=== PATIENT | male | born 1965 | race Caucasian/White ===

== ENCOUNTER 2016-09-18 17:48 | Emergency (ER) | payer BC, OTHER ==
[2016-09-18 18:36] LABS: Hematocrit 46 % (42-52); Hemoglobin 15.5 g/dl (14.0-18.0); Mean Corpuscular HGB Conc 34 g/dl (31-36); Mean Corpuscular Hemoglobin 30 pg (27-31); Mean Corpuscular Volume 89 fL (80-94); Mean Platelet Volume 8 um3 (7.4-10.4); Red Blood Count 5.19 10^6/ul (4.0-5.4); Red Cell Distribution Width 14 % (10.5-15); White Blood Count 9.1 10^3/ul (3.5-10.8)
[2016-09-18] MEDS ORDERED: Acetaminophen TAB* 325 MG PO ONE (18:38)
[2016-09-18 18:53] LABS: Albumin 4.4 g/dL (3.2-5.2); BUN/Creatinine Ratio 19.8 (8-20); Calcium 9.3 mg/dL (8.6-10.3); EGFR African American 85.4 (>60); EGFR Non-African American 66.4 (>60); Globulin 3.1 g/dL (2-4); Potassium 3.5 mmol/L (3.5-5.0); Total Bilirubin 0.5 mg/dL (0.2-1.0); Total Protein 7.5 g/dL (6.4-8.9)
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
[2016-09-18 19:09] LABS: Troponin I 0.01 ng/mL (<0.04)
[2016-09-18 19:16] VITALS: BP 147/83
== END 2016-09-18 19:00 | disposition short-term general hospital (02) ==
LOC: ED 17:48
DX: S29.9XXA Unspecified injury of thorax, initial encounter (principal); V49.9XXA Car occupant (driver) (passenger) injured in unspecified traffic accident, initial encounter; Y93.9 Activity, unspecified; Y92.9 Unspecified place or not applicable; Y99.9 Unspecified external cause status
CPT/HCPCS: 36415; 80053; 83605; 84484; 85025; 93005; 99283

== ENCOUNTER 2019-07-02 12:43 | Emergency (ER) | payer BC ==
[2019-07-02 13:18] LABS: ABS Lymphocytes 1.8 10^3/ul (1.0-4.8); ABS Monocytes 0.5 10^3/ul (0-0.8); ABS Neutrophils 4.2 10^3/ul (1.5-7.7); Eosinophil % 0.7 %; Hematocrit 48 % (42-52); Hemoglobin 16.2 g/dL (14.0-18.0); Lymphocyte % 27.8 %; Mean Corpuscular HGB Conc 34 g/dL (31-36); Mean Corpuscular Hemoglobin 31 pg (27-31); Mean Corpuscular Volume 91 fL (80-94); Mean Platelet Volume 7.4 fL (7.4-10.4); Platelet Count 236 10^3/uL (150-450); Red Blood Count 5.23 10^6 /uL (4.18-5.48); Red Cell Distribution Width 13 % (10-15); White Blood Count 6.6 10^3/uL (3.5-10.8)
[2019-07-02 13:38] LABS: Albumin 4.4 g/dL (3.2-5.2); Albumin/Globulin Ratio 1.6 (1-3); BUN/Creatinine Ratio 15.9 (8-20); Calcium 9.2 mg/dL (8.6-10.3); EGFR African American 81.8 (>60); EGFR Non-African American 67.6 (>60); Globulin 2.7 g/dL (2-4); Potassium 3.9 mmol/L (3.5-5.0); Total Bilirubin 0.6 mg/dL (0.2-1.0); Total Protein 7.1 g/dL (6.4-8.9)
[2019-07-02 13:39] LABS: Troponin I 0.01 ng/mL (<0.03)
[2019-07-02 13:44] LABS: INR 1.01 (0.82-1.09)
--- NOTE | 2019-07-02 15:46 | ED ---
HPI Chest Pain - HPI Summary HPI Summary: Patient is a 53 y/o M presenting to the ED for a chief complaint of intermittent diffuse chest pain and shortness of breath for the last 2 days. Patient is present with his . Patient describes his chest pain as a sore sensation. He notes insomnia due to the chest pain, and numbness and paresthesia in the left arm for the last 6-8 hours. He also reports nausea, dizziness, and neck pain at baseline that he has had in the past which he states are unrelated to his current chest pain. He denies any aggravating or alleviating factors. Patient denies taking any medications for his chest pain. He admits a recent trip to [place] for [employer]. Last cardiac stress test was 3 years ago without any significant findings. PMHx is significant for hypertension and arrhythmia. He sees Dr. Schwarz. Allergies noted. - History of Current Complaint Chief Complaint: EDChestPainROMI Time Seen by Provider: 07/02/19 15:37 Hx Obtained From: Patient Onset/Duration: Started Days Ago - 2 days, Atraumatic, Still Present Timing: Constant, Lasting Days - 2 days Initial Severity: Mild Current Severity: Mild Pain Intensity: 2 Pain Scale Used: 0-10 Numeric Chest Pain Location: Diffuse Chest Pain Radiates: No Character: Other: - Soreness Aggravating Factor(s): Nothing Alleviating Factor(s): Nothing Associated Signs and Symptoms: Positive: Chest Pain, Numbness - Left arm, Tingling - Left arm, Dizziness - At baseline, Shortness of Breath, Nausea - At baseline, Other: - Positive neck pain at baseline - Additional Pertinent History Primary Care Physician: [id number] - Allergy/Home Medications Allergies/Adverse Reactions: Allergies Allergy/AdvReac Type Severity Reaction Status Date / Time MS Codeine [Codeine] Allergy Hives Verified 09/18/16 18:08 MS Hydromorphone Allergy Nausea And Verified 09/18/16 18:08 [From Dilaudid] Vomiting MS Penicillins [PCN] Allergy Hives Verified 09/18/16 18:08 MS Propoxyphene [From Darvon] Allergy Hives Verified 09/18/16 18:08 MS Scopolamine [Scopolamine] Allergy Blurred Verified 09/18/16 18:08 Vision PMH/Surg Hx/FS Hx/Imm Hx Previously Healthy: Yes Endocrine/Hematology History: Denies: Hx Diabetes Cardiovascular History: Reports: Hx Hypertension, Other Cardiovascular Problems/ Disorders - HX OF TACHYCARDIA/bradycardia, labile BP Denies: Hx Hypercholesterolemia, Hx Pacemaker/ICD Respiratory History: Reports: Other Respiratory Problems/Disorders - occasional SOB, "can't get a good breath" GI History: Reports: Hx Gastroesophageal Reflux Disease, Hx Hiatal Hernia - umbilicus hernia surgery, mesh placement History: Reports: Hx Kidney Infection, Hx Kidney Stones Musculoskeletal History: Reports: Hx Arthritis - "little bit in neck", Hx Back Problems Sensory History: Reports: Hx Contacts or Glasses - glasses Denies: Hx Legally Blind, Hx Deafness, Hx Hearing Aid Opthamlomology History: Reports: Hx Contacts or Glasses - glasses Denies: Hx Legally Blind EENT History: Denies: Hx Deafness Neurological History: Reports: Hx Migraine Denies: Hx Seizures Psychiatric History: Reports: Hx Anxiety Denies: Hx Depression, Hx Panic Disorder - Surgical History Surgical History: Yes Surgery Procedure, Year, and Place: LUMPS REMOVED FROM SIDE SPINE(BENIGN). LUMP REMOVED FROM PENIS(BENIGN). 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 HERNIA. 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; 2013-[facility](CONDITIONAL 1.5T) SCANNED SAFETY INFORMATION INTO "OTHER FACILITY REPORTS" Hx Anesthesia Reactions: Yes - Chest pressure, labile BP, NAUSEA, dizziness Infectious Disease History: No Infectious Disease History: Denies: Traveled Outside the US in Last 30 Days - Family History Known Family History: Negative: Diabetes - Social History Occupation: Works From/At Home Lives: With Family Alcohol Use: None Hx Substance Use: No Substance Use Type: Reports: None Hx Tobacco Use: Yes Smoking Status (MU): Former Smoker Review of Systems Positive: Chest Pain Positive: Shortness Of Breath Positive: Nausea - At baseline Positive: Myalgia - Neck pain at baseline Neurological: Other - Positive dizziness at baseline Positive: Paresthesia - Left arm, Numbness - Left arm All Other Systems Reviewed And Are Negative: Yes Physical Exam - Summary Physical Exam Summary: VITAL SIGNS: Reviewed. GENERAL: Patient is a well-developed and nourished FEMALE who is lying comfortable in the stretcher. Patient is not in any acute respiratory distress. HEAD AND FACE: No signs of trauma. No ecchymosis, hematomas or skull depressions. No sinus tenderness. EYES: PERRLA, EOMI x 2, No injected conjunctiva, no nystagmus. EARS: Hearing grossly intact. Ear canals and tympanic membranes are within normal limits. MOUTH: Oropharynx within normal limits. NECK: Supple, trachea is midline, no adenopathy, no JVD, no carotid bruit, no c- spine tenderness, neck with full ROM. CHEST: Symmetric, no tenderness at palpation. LUNGS: Clear to auscultation bilaterally. No wheezing or crackles. CVS: Regular rate and rhythm, S1 and S2 present, no murmurs or gallops appreciated. ABDOMEN: Soft, non-tender. No signs of distention. No rebound, no guarding, and no masses palpated. Bowel sounds are normal. EXTREMITIES: FROM in all major joints, no edema, no cyanosis or clubbing. NEURO: Alert and oriented x 3. No acute neurological deficits. Speech is normal and follows commands. SKIN: Dry and warm. Triage Information Reviewed: Yes Vital Signs On Initial Exam: Initial Vitals Temp Pulse Resp BP Pulse Ox 98.4 F 81 18 154/96 98 07/02/19 12:45 07/02/19 12:45 07/02/19 12:45 07/02/19 12:45 07/02/19 12:45 Vital Signs Reviewed: Yes Procedures - Sedation Patient Received Moderate/Deep Sedation with Procedure: No Diagnostics - Vital Signs Vital Signs Temp Pulse Resp BP Pulse Ox 07/02/19 12:45 98.4 F 81 18 154/96 98 - Laboratory Lab Results: Lab Results 07/02/19 07/02/19 07/02/19 Range/Units 13:07 13:07 13:07 WBC 6.6 (3.5-10.8) 10^3/uL RBC 5.23 (4.18-5.48) 10^6 /uL Hgb 16.2 (14.0-18.0) g/dL Hct 48 (42-52) % MCV 91 (80-94) fL MCH 31 (27-31) pg MCHC 34 (31-36) g/dL RDW 13 (10-15) % Plt Count 236 (150-450) 10^3/uL MPV 7.4 (7.4-10.4) fL Neut % (Auto) 63.1 % Lymph % (Auto) 27.8 % [place] % (Auto) 7.8 % Eos % (Auto) 0.7 % Baso % (Auto) 0.6 % Absolute Neuts (auto) 4.2 (1.5-7.7) 10^3/ul Absolute Lymphs (auto) 1.8 (1.0-4.8) 10^3/ul Absolute Monos (auto) 0.5 (0-0.8) 10^3/ul Absolute Eos (auto) 0.0 (0-0.6) 10^3/ul Absolute Basos (auto) 0.0 (0-0.2) 10^3/ul Absolute Nucleated RBC 0.0 10^3/ul Nucleated RBC % 0.0 INR (Anticoag Therapy) 1.01 (0.82-1.09) Sodium 140 (135-145) mmol/L Potassium 3.9 (3.5-5.0) mmol/L Chloride 105 (101-111) mmol/L Carbon Dioxide 28 (22-32) mmol/L Anion Gap 7 (2-11) mmol/L BUN 18 (6-24) mg/dL Creatinine 1.13 (0.67-1.17) mg/dL Est GFR ( Amer) 81.8 (>60) Est GFR (Non-Af Amer) 67.6 (>60) BUN/Creatinine Ratio 15.9 (8-20) Glucose 102 H (70-100) mg/dL Calcium 9.2 (8.6-10.3) mg/dL Total Bilirubin 0.60 (0.2-1.0) mg/dL AST 18 (13-39) U/L ALT 20 (7-52) U/L Alkaline Phosphatase 53 (34-104) U/L Troponin I 0.01 (<0.03) ng/mL Total Protein 7.1 (6.4-8.9) g/dL Albumin 4.4 (3.2-5.2) g/dL Globulin 2.7 (2-4) g/dL Albumin/Globulin Ratio 1.6 (1-3) Result Diagrams: 07/02/19 13:07 07/02/19 13:07 Lab Statement: Any lab studies that have been ordered have been reviewed, and results considered in the medical decision making process. - Radiology Chest X-ray Radiology Interpretation Completed By: Radiologist Summary of Radiographic Findings: Chest X-ray IMPRESSION: NO ACTIVE CARDIOPULMONARY DISEASE IS NOTED. Reviewed by Dr. Thompson. - EKG 12:44 Cardiac Rate: NL - 79 BPM EKG Rhythm: Sinus Rhythm ST Segment: Normal Ectopy: None Summary of EKG Findings: EKG at 12:44 shows 79 BPM with normal sinus rhythm, no ST elevations, no STEMI. Reviewed and interpreted by Dr. Thompson. Chest Pain Course/Dx - Course Assessment/Plan: Patient is a 53 y/o M presenting to the ED for a chief complaint of intermittent diffuse chest pain and shortness of breath for the last 2 days. Patient is present with his . Patient describes his chest pain as a sore sensation. He notes insomnia due to the chest pain, and numbness and paresthesia in the left arm for the last 6-8 hours. He also reports nausea, dizziness, and neck pain at baseline that he has had in the past which he states are unrelated to his current chest pain. He denies any aggravating or alleviating factors. Patient denies taking any medications for his chest pain. He admits a recent trip to [place] for [employer]. Last cardiac stress test was 3 years ago without any significant findings. PMHx is significant for hypertension and arrhythmia. He sees Dr. Schwarz. Allergies noted. Blood work without a significant abnormality except for glucose of 102. 2 troponins 4 HOURS apart showed 0.01. D-dimer is negative. Heart score is equal to 1. Chest X-ray shows no active cardiopulmonary disease is noted. At this point I believe that the patient has skeletal pain. The patient was given Tylenol for the pain he did not want to be given any other medications. I discussed all the findings and test results with the patient. Patient was instructed to return to the emergency room immediately if any of the symptoms return or worsen. Patient understands and agrees. Plan of care was discussed with the patient and questions answered at the patient's satisfaction. There were no further complaints or concerns. PE before discharge: CVS: S1 and S2 present. No murmurs appreciated. Abdominal exam before discharge: Soft, non-tender. No signs of distention. No rebound no guarding, and no masses palpated. Bowel sounds are normal. Patient is alert and oriented x 3. Patient is hemodynamically stable. Follow up with PCP in 2-3 days. - Chest Pain Differential Diagnosis/HQI/PQRI: Acute RI, ACS, Angina, CHF, Chest Wall, GI Disease, Lower Respiratory Infection, Pulmonary Edema - Diagnoses Provider Diagnoses: Chest pain Discharge ED - Sign-Out/Discharge Documenting (check all that apply): Patient Departure - Discharge - Discharge Plan Condition: Stable Disposition: HOME Patient Education Materials: Chest Pain (ED) Referrals: [facility] [Outside] Additional Instructions: FOLLOW UP WITH YOUR PRIMARY CARE PROVIDER WITHIN 2-3 DAYS. RETURN TO THE ED FOR ANY WORSENING OR NEW SYMPTOMS. - Billing Disposition and Condition Condition: STABLE Disposition: Home - Attestation Statements Document Initiated by Scribe: Yes Documenting Scribe: Myranda Marquez Provider For Whom Scribe is Documenting (Include Credential): Barrera Thompson MD Scribe Attestation: Myranda Fernandes scribed for Barrera Thompson MD on 07/02/19 at 2131. Scribe Documentation Reviewed: Yes Provider Attestation: The documentation as recorded by the Myranda jones accurately reflects the service I personally performed and the decisions made by Barrera watts MD Status of Scribe Document: Viewed
[2019-07-02] MEDS ORDERED: Acetaminophen TAB* 325 MG PO ONE (16:04)
[2019-07-02 17:29] VITALS: BP 125/92
== END 2019-07-02 17:30 | disposition home or self-care (01) ==
LOC: ED 12:43
DX: R07.9 Chest pain, unspecified (principal); R06.02 Shortness of breath; I10 Essential (primary) hypertension; K21.9 Gastro-esophageal reflux disease without esophagitis; Z87.442 Personal history of urinary calculi; Z87.891 Personal history of nicotine dependence; Z88.5 Allergy status to narcotic agent; Z88.0 Allergy status to penicillin; Z88.8 Allergy status to other drugs, medicaments and biological substances
CPT/HCPCS: 36415; 71045; 80053; 84484; 85025; 85379; 85610; 93005; 99282; A9270-GY